=== PATIENT | female | born 1995 | race Caucasian/White ===

== ENCOUNTER 2019-01-03 04:07 | Inpatient (IN) | payer OTHER ==
[2019-01-03] MEDS ORDERED: PROMETHAZINE 25 MG/ML VIAL IM PRN (04:21)
[2019-01-03] MEDS ORDERED: METHYLERGONOVINE 0.2MG/ML AMP IM PRN (04:21)
[2019-01-03] MEDS ORDERED: BUTORPHANOL 1 MG/ML INJ IV PRN (04:21)
[2019-01-03] MEDS ORDERED: Ringers Lactate 1,000 ML IV PRN (04:21)
[2019-01-03] MEDS ORDERED: CARBOPROST TROME 250 MCG/ML IM PRN (04:21)
[2019-01-03 04:58] LABS: Absolute Lymphocytes (CBC) 2.9 K/uL (0.7-4.9); Basophils % 0.3 % (0-1.3); Hematocrit 33.1 % (36.0-45.0); Lymphocytes % 27.5 % (15.3-44.8); MPV 8.8 fL (7.6-11.3); RBC Red Blood Cell Count 3.93 M/uL (3.86-4.86)
[2019-01-03] MEDS ORDERED: Ringers Lactate 1,000 ML IV SCH (05:00)
[2019-01-03] MEDS ORDERED: OXYTOCIN/LR 20 UNIT/1,000 ML BAG IV SCH ×2 (05:00→16:00)
[2019-01-03 05:13] VITALS: BMI 34.5
[2019-01-03 05:15] LABS: Urine Appearance CLOUDY; Urine Bilirubin NEGATIVE (NEG); Urine Blood 2+ (NEG); Urine Color YELLOW; Urine Glucose NEGATIVE (NEG); Urine Protein NEGATIVE (NEG); Urine Specific Gravity 1.025 (1.005-1.030); Urine Urobilinogen 0.2 mg/dL (0.2-1.0)
[2019-01-03 05:32] LABS: Urine Microscopic Reflex ORDER UMIC
[2019-01-03 06:06] LABS: Urine Bacteria >50 /HPF (<20); Urine Culture Reflex Order NOT NEEDED; Urine RBC <5 /HPF (NONE SEEN)
--- NOTE | 2019-01-03 07:51 | PREOPHP ---
Date of Admission: 01/03/2019 23-year-old, primigravida, 39 weeks, Rh positive, immune to rubella, negative beta strep screen. Con tracting regularly at this point. Cervix is 2 cm, still somewhat posterior, 60% effaced, vertex, wel l applied, -1 station. Rupture of membranes, clear fluid. Labor talk given. Anticipate delivery so metime later today. Patient is Rh negative, has received RhoGAM during the . AMPARO/JUMA Voice ID: [id number]
[2019-01-03] MEDS ORDERED: ROPIVACAINE HCL 100 ML IV PRN (11:53)
[2019-01-03] MEDS ORDERED: FENTANYL CITR 100 MCG/2 ML IV ONE (11:53)
[2019-01-03] MEDS ORDERED: MEPERIDINE HCL 25 MG/0.5 ML IV ONE (11:59)
[2019-01-03] MEDS ORDERED: ROPIVACAINE HCL 0.2% 20ML AMP IV SCH (12:00)
[2019-01-03] MEDS ORDERED: LIDOCAINE 1% 20 ML MDV ONE (15:36)
[2019-01-03] MEDS ORDERED: ACETAMINOPHEN 500 MG TAB PO PRN (15:50)
[2019-01-03] MEDS ORDERED: DIPHENHYDRAMINE 25 MG TAB/CAP PO PRN (15:50)
[2019-01-03] MEDS ORDERED: Oxycodone HCl/Acetaminophen 1 TAB TAB PO PRN ×2 (15:50)
[2019-01-03] MEDS ORDERED: DOCUSATE NA/SENNA CONC 1 TAB PO PRN (15:50)
[2019-01-03] MEDS ORDERED: BISACODYL 10 MG RECTAL SUPP RECT PRN (15:50)
[2019-01-03] MEDS ORDERED: METHYLERGONOVINE 0.2 MG TAB PO ONE (16:25)
[2019-01-03] MEDS: METHYLERGONOVINE 0.2 MG TAB PO PRN ×2 (17:00→21:12)
[2019-01-03] MEDS ORDERED: Ringers Lactate 1,000 ML IV ONE (18:37)
[2019-01-03] MEDS: IBUPROFEN 200 MG TAB PO PRN (19:06)
[2019-01-03] MEDS ORDERED: Rho(D) IG (HUMAN) 300 MCG SYR IM ONE (20:55)
[2019-01-03 22:24] LABS: RPR (Rapid Plasma Reagin) NON-REACT (NON-REACT)
[2019-01-04] MEDS: METHYLERGONOVINE 0.2 MG TAB PO PRN ×4 (01:09→11:53)
--- NOTE | 2019-01-04 01:49 | OP ---
Surgeon: Edi Sullivan MD This is a 23-year-old primigravida, 39 weeks. Followed antepartum without complications. Rh negativ e, had received RhoGAM during the . Rubella immune. Negative beta strep screen. Rupture o f membranes this morning, at 2 cm, clear fluid. Stadol 1 mg IV initially followed by epidural anesth esia. Epidural started at 10, maintenance switched down to 8, then to 6, about 15 minutes before del greta was shut off. Second stage of approximately 2 hours. Spontaneous vaginal delivery of an estim ated 7-pound female. Nuchal cord very loosely x1. Apgars 9 and 9. Second degree episiotomy, which was cut as the first degree and extended to a second degree, repaired with 2-0 chromic after local in filtration. Schultze delivery of the placenta, was inspected and noted to be intact and normal. [place] quinn as expected, mildly hypotonic. 0.2 mg of Methergine IM. Estimated blood loss 450 cc. Uterus co ntracted down well with IV drip Pitocin, Methergine, and massage. Patient tolerated all procedures w ell. Final Diagnoses: Term intrauterine at 39 weeks, vaginal delivery, epidural anesthesia, mil d uterine hypotonus. AMPARO/MODL Voice ID: [id number] Report ID: [id number]
[2019-01-04] MEDS: IBUPROFEN 200 MG TAB PO PRN ×2 (05:13→11:53)
--- NOTE | 2019-01-04 08:18 | PN ---
Patient is on 14 milliunits of Pitocin. Says in the last hour, she has gone up from 2 cm to 4.5, nadiya ost 5, 100% effaced, 0 station. She has had 1 mg of Stadol. She is a little sleepy and so is the ba by but with the pelvic check the baby shows reactivity. At this point, she is requesting epidural. We will hydrate her, and get her ready for the epidural which would not slow her down but I think she is going into the active phase now and it would not surprise me if she is completely dilated within the next hour or 2. AMPARO/JUMA Voice ID: [id number] Report ID: [id number]
[2019-01-04 12:00] VITALS: BP 131/82; TEMP 97.9
--- NOTE | 2019-01-06 08:16 | DS ---
Date of Discharge: 01/04/2019 Hospital Course: 23-year-old primigravida at 39 weeks gestation, delivered a 7 pound 2 ounce female after 2 hours second stage. During that time, epidural maintenance dose was decreased from 10 to 6 and eventually shut off. Second-degree midline episiotomy, first degree episiotomy with second -degree extension repaired with 2-0 chromic. Schultze delivery of the placenta, inspected and noted to be intact. Mild uterine hypotonus, 0.2 mg of Methergine IM as well as IV drip Pitocin. Estimated blood loss 450 cc. Rh negative. RhoGAM has been ordered. She received RhoGAM during her . Tdap has been given. Flu shot has been offered through my office. Patient requests no analgesics on dismissal, says she will take Motrin, is . Full discussion about . No post epidural problems. Final Diagnoses: Term intrauterine at 39 weeks. Labor induction. Vaginal delivery. Mild uterine hypertonicity. RhoGAM ordered. AMPARO/JUMA Voice ID: [id number] Report ID: [id number]
[2019-01-06 20:15] LABS: HBsAG Nonreactive (Nonreactive)
== END 2019-01-04 18:20 | disposition home or self-care (01) | DRG 807 ==
LOC: 2ND-WC 04:07
PROVIDERS: ADMIT Specialist; ATTEND Specialist
PROC: 10E0XZZ Delivery of Products of Conception, External Approach (ICD-10-PCS; principal; 2019-01-03)
PROC: 0KQM0ZZ Repair Perineum Muscle, Open Approach (ICD-10-PCS; 2019-01-03)
PROC: 3E0234Z Introduction of Serum, Toxoid and Vaccine into Muscle, Percutaneous Approach (ICD-10-PCS; 2019-01-03)
PROC: 0W8NXZZ Division of Female Perineum, External Approach (ICD-10-PCS; 2019-01-03)
PROC: 10907ZC Drainage of Amniotic Fluid, Therapeutic from Products of Conception, Via Natural or Artificial Opening (ICD-10-PCS; 2019-01-03)
DX: O70.1 Second degree perineal laceration during delivery (principal); Z37.0 Single live birth; O62.2 Other uterine inertia; O69.81X0 Labor and delivery complicated by cord around neck, without compression, not applicable or unspecified; Z3A.39 39 weeks gestation of pregnancy
CPT/HCPCS: 36415; 81003; 81015; 85025; 85461; 86592; 86850; 86901; 87340; J0595; J2175; J2210; J2550; J2590; J2790; J2795